=== PATIENT | female | born 1945 ===

== ENCOUNTER → 2021-04-15 | Outpatient (CLI) | payer MEDICARE ==
--- NOTE | 2021-04-15 19:02 | BD ---
EXAMINATION TYPE: Axial Bone Density DATE OF EXAM: 04/15/2021 COMPARISON: NONE CLINICAL HISTORY: Postmenopausal screening Height: 66 IN Weight: 171 LBS RISK FACTORS HISTORY OF: Active: YES Postmenopausal woman: AGE 53 MEDICATIONS: Additional Medications: CALCIUM, VIT D, EXAM MEASUREMENTS: Bone mineral densitometry was performed using the [employer] System. Bone mineral density as measured about the Lumbar spine is: ----- L1-L4(G/cm2): 1.345 T Score Values are as follows: ----- L2: 0.8 ----- L3: 1.1 ----- L4: 1.6 ----- L1-L4: 1.4 Bone mineral density BASELINE Bone mineral density about the R hip (g/cm2): 0.861 Bone mineral density about the L hip (g/cm2): 1.087 T Score values are as follows: -----R Neck: -1.3 -----L Neck: 0.4 -----R Total: 0.4 -----L Total: 0.7 Bone mineral density BASELINE IMPRESSION: Osteopenia (T Score between -2.5 and -1). There is slightly increased risk of fracture and the patient may be considered for treatment. Re-Screen 2-5 years. NOTE: T-SCORE=SD OF THE YOUNG ADULT MEAN.
--- NOTE | 2021-04-21 12:13 | MM ---
Reason for exam: screening (asymptomatic). History: Patient is postmenopausal. Took hormonal contraceptives for 40 years. Physical Findings: A clinical breast exam by your physician is recommended on an annual basis and results should be correlated with mammographic findings. MG 3D Screening Mammo W/Cad Bilateral CC and MLO view(s) were taken. No prior studies available for comparison. There are scattered fibroglandular densities. Finding: There are typically benign vascular calcifications in both breasts. ASSESSMENT: Benign, BI-RAD 2 RECOMMENDATION: Routine screening mammogram of both breasts in 1 year.
== END | disposition home or self-care (01) ==
LOC: RADMAMWWP 10:10
PROVIDERS: ATTEND Family Medicine
DX: Z12.31 Encounter for screening mammogram for malignant neoplasm of breast (principal); Z13.820 Encounter for screening for osteoporosis; M85.851 Other specified disorders of bone density and structure, right thigh; Z79.3 Long term (current) use of hormonal contraceptives
CPT/HCPCS: 77063; 77067; 77080

== ENCOUNTER 2021-05-29 09:13 | Day surgery (SDC) | payer MEDICARE ==
[2021-05-26 13:25] VITALS: BMI 27.7
[~2021-05-29 09:13] MED LIST: LACTATED RINGERS 1,000 ML IV SCH
[2021-05-29 09:43] VITALS: TEMP 97.6
[2021-05-29] MEDS ORDERED: LIDOCAINE 1% (10MG/ML) FOR IV START INTRADERMA ONE (09:50)
[2021-05-29] MEDS ORDERED: GLYCOPYRROLATE 0.2 MG/ML 2 ML VIAL ONE (10:51)
[2021-05-29] MEDS ORDERED: LIDOCAINE 1% INJ 10MG/ML (20 ML MDV) ONE (10:51)
[2021-05-29] MEDS ORDERED: PROPOFOL 10 MG/ML 20 ML VIAL IV ONE (10:51)
--- NOTE | 2021-05-29 10:54 | P.GSHP ---
History of Present Illness H&P Date: 05/29/21 Chief Complaint: GI bleed This a 75-year-old female presents today for colonoscopy. She's had issues with rectal bleeding. Past Medical History Past Medical History: Hyperlipidemia, Osteoarthritis (OA) History of Any Multi-Drug Resistant Organisms: None Reported Past Surgical History: Orthopedic Surgery, Tonsillectomy Additional Past Surgical History / Comment(s): left bunionectomy Past Anesthesia/Blood Transfusion Reactions: No Reported Reaction Past Psychological History: No Psychological Hx Reported Smoking Status: Never smoker Past Alcohol Use History: None Reported Past Drug Use History: None Reported Medications and Allergies Home Medications Medication Instructions Recorded Confirmed Type Atorvastatin [Lipitor] 20 mg PO DAILY 05/26/21 05/29/21 History Meloxicam 7.5 mg PO DIRECTED PRN 05/26/21 05/26/21 History Allergies Allergy/AdvReac Type Severity Reaction Status Date / Time No Known Allergies Allergy Verified 05/29/21 09:44 Surgical - Exam Vital Signs Temp Pulse Resp BP Pulse Ox 97.6 F 67 16 157/80 97 05/29/21 09:42 05/29/21 09:42 05/29/21 09:42 05/29/21 09:42 05/29/21 09:42 - General well developed, well nourished, no distress - Eyes PERRL - ENT normal pinna - Neck no masses - Respiratory normal expansion - Cardiovascular Rhythm: regular - Abdomen Abdomen: soft, non tender Assessment and Plan Assessment: GI bleed. We'll perform colonoscopy.
--- NOTE | 2021-05-29 11:12 | P.OP ---
Date of Procedure: 05/29/21 Preoperative Diagnosis: GI bleed Postoperative Diagnosis: Diverticulosis Internal hemorrhoids Procedure(s) Performed: Colonoscopy Anesthesia: MAC Surgeon: Santi Palomino Pathology: other Condition: stable Disposition: PACU Description of Procedure: The patient's placed on the endoscopy table in the lateral position. She received IV sedation. Digital rectal exam was performed which revealed a few internal hemorrhoids. Flexible colonoscope was then placed patient anus passed throughout the entire colon. The ileocecal valve sutures. The cecum, ascending and transverse colon appeared normal. In the descending; there is moderate diverticular changes. Scope is brought back the rectum and this appeared normal. Scope was withdrawn for patient.
[2021-05-29 11:45] VITALS: BP 130/79; PULSE 70; RESP 18
== END 2021-05-29 12:10 | disposition home or self-care (01) ==
LOC: ORWHC2ENDO 09:13
PROVIDERS: ATTEND Surgery
DX: K57.90 Diverticulosis of intestine, part unspecified, without perforation or abscess without bleeding (principal); K64.8 Other hemorrhoids; M19.90 Unspecified osteoarthritis, unspecified site; E78.5 Hyperlipidemia, unspecified; Z79.899 Other long term (current) drug therapy
CPT/HCPCS: 45378; J2001; J2704